=== PATIENT | female | born 1985 | race American Indian/Alaskan Native ===

== ENCOUNTER 2016-12-12 11:41 | Emergency (ER) | payer SELFPAY ==
[2016-12-12 12:15] VITALS: BP 155/111
[2016-12-12 13:47] LABS: Basophils % (Auto) 1.3 % (0.0-1.8); Eosinophils % (Auto) 10.1 % (0.0-4.3); Hemoglobin 12.7 gm/dl (10.1-14.3); Mean Corpuscular HGB Conc 33 % (30-34); Mean Corpuscular Hemoglobin 29 pg (28-32); Mean Corpuscular Volume 88 fl (79-97); Platelet Count 246 K/mm3 (140-440); Red Blood Count 4.41 M/mm3 (3.65-5.03); Red Cell Distribution Width 14.4 % (13.2-15.2); White Blood Count 9.3 K/mm3 (4.5-11.0)
--- NOTE | 2016-12-12 13:56 | Emergency Department Report ---
Chief Complaint: High BP Stated Complaint: HBP - HPI History of Present Illness: 31-year-old female presents with complaint of dizziness and generalized weakness states that she has had high blood pressure for 2 days now - ROS Review of Systems: In her usual state of health until 2 days ago - Exam Vital Signs: Vital Signs 12/12/16 12:13 Temperature 98.5 F Pulse Rate 72 Respiratory 18 Rate Blood Pressure 155/111 O2 Sat by Pulse 100 Oximetry Physical Exam: Heart S1-S2 lungs clear to auscultation MSE screening note: Focused history and physical exam performed. Due to findings the following was ordered: Screening Assessment/Plan/Differential Dx: Hypertension, generalized weakness 1- This initial assessment/diagnostic orders/clinical plan/ treatment(s) is/are subject to change based on pt's health status, clinical progression and re- assessment by fellow clinical providers in the ED. Further treatment and workup at subsequent clinical provers discretion. Patient/guardians urged not to elope from ED as their condition may be serious if not clinically assessed and managed. 2-EKG, chest x-ray, urinalysis, CK, CK-MB, troponin, BMP to rule out any organ damage associated with hypertension 3-BP 155/111, we will recheck and I will leave the decision to start antihypertensive medicine to physician in main ED ED Disposition for MSE Condition: Stable
[2016-12-12 14:03] LABS: Anion Gap 15 mmol/L; BUN/Creatinine Ratio 24.28; Blood Urea Nitrogen 17 mg/dL (7-17); Carbon Dioxide 25 mmol/L (22-30); Chloride 101.3 mmol/L (98-107); Glucose 105 mg/dL (65-100); Potassium 4.2 mmol/L (3.6-5.0); Sodium 137 mmol/L (137-145)
[2016-12-12 14:19] LABS: Creatine Kinase MB 1.3 ng/mL (0.0-4.0)
[2016-12-12 14:20] LABS: Creatine Kinase 90 units/L (30-135)
[2016-12-12 14:36] LABS: Bilirubin,Urine NEG (Negative); Blood,Urine MOD (Negative); Ketones,Urine NEG (Negative); Leukocyte Esterase,Urine NEG (Negative); Mucus,Urine FEW /HPF; Nitrite,Urine NEG (Negative); Protein,Urine <15 mg/dL mg/dL (Negative); Urobilinogen,Urine < 2.0 mg/dL (<2.0); WBC,Urine < 1.0 /HPF (0.0-6.0)
--- NOTE | 2016-12-12 14:36 | XRay Report ---
ROUTINE CHEST, TWO VIEWS: HISTORY: Hypertension. The trachea, heart, mediastinal contour, lung aragon and bony thorax are unremarkable. IMPRESSION: Unremarkable chest x-ray.
== END 2016-12-12 17:40 | disposition left against medical advice (07) ==
LOC: ED 11:41
DX: R42 Dizziness and giddiness (principal); R53.1 Weakness; I10 Essential (primary) hypertension; Z53.21 Procedure and treatment not carried out due to patient leaving prior to being seen by health care provider
CPT/HCPCS: 36415; 71020; 80048; 81001; 81025; 82550; 82553; 84484; 85025; 93005; 93010

== ENCOUNTER 2016-12-13 06:19 | Emergency (ER) | payer SELFPAY ==
[2016-12-13 11:49] VITALS: BP 157/110
--- NOTE | 2016-12-15 18:28 | ED Elopement Review ---
ED Pt Elopement review - Call Back decision Pt Call Back Decision: Pt to F/U with PMD
== END 2016-12-13 12:15 | disposition left against medical advice (07) ==
LOC: ED 06:19
DX: R51 Headache (principal); Z53.21 Procedure and treatment not carried out due to patient leaving prior to being seen by health care provider

== ENCOUNTER 2019-08-30 07:14 | Emergency (ER) | payer SELFPAY ==
[2019-08-30] MEDS ORDERED: NORMODYNE IV ONE ×2 (08:12→10:05)
[2019-08-30 08:46] LABS: Basophils # (Auto) 0.1 K/mm3 (0.0-0.1); Basophils % (Auto) 1.1 % (0.0-1.8); Eosinophils # (Auto) 0.3 K/mm3 (0.0-0.4); Eosinophils % (Auto) 3.8 % (0.0-4.3); Hematocrit 39.1 % (30.3-42.9); Lymphocytes # (Auto) 1.9 K/mm3 (1.2-5.4); Lymphocytes % (Auto) 22.7 % (13.4-35.0); Mean Corpuscular HGB Conc 33 % (30-34); Mean Corpuscular Volume 93 fl (79-97); Monocytes # (Auto) 0.6 K/mm3 (0.0-0.8); Monocytes % (Auto) 7.7 % (0.0-7.3); Platelet Count 235 K/mm3 (140-440); Red Blood Count 4.19 M/mm3 (3.65-5.03); Red Cell Distribution Width 13.5 % (13.2-15.2)
--- NOTE | 2019-08-30 09:12 | XRay Report ---
RIGHT WRIST 2 VIEW(S) INDICATION / CLINICAL INFORMATION: Wrist pain after trauma. COMPARISON: None available. FINDINGS: BONES / JOINT(S): No acute fracture or subluxation. No significant arthritis. SOFT TISSUES: No significant abnormality. ADDITIONAL FINDINGS: None. Signer Name: Era Goodman MD Signed: 08/30/2019 9:08 AM Workstation Name: [id number]
--- NOTE | 2019-08-30 09:13 | XRay Report ---
CHEST 2 VIEWS INDICATION / CLINICAL INFORMATION: hypertension. COMPARISON: 12/12/16 FINDINGS: SUPPORT DEVICES: None. HEART / MEDIASTINUM: No significant abnormality. LUNGS / PLEURA: No significant pulmonary or pleural abnormality. No pneumothorax. ADDITIONAL FINDINGS: No significant additional findings. IMPRESSION: 1. No acute findings. No change. Signer Name: Era Goodman MD Signed: 08/30/2019 9:08 AM Workstation Name: [id number]
[2019-08-30 09:20] LABS: Alanine Aminotransferase 9 units/L (7-56); Albumin 4.6 g/dL (3.9-5); BUN/Creatinine Ratio 19; Blood Urea Nitrogen 15 mg/dL (7-17); Calcium 8.5 mg/dL (8.4-10.2); Hemolysis Index 1
[2019-08-30 09:45] LABS: Bilirubin,Direct < 0.2 mg/dL (0-0.2)
[2019-08-30] MEDS ORDERED: NORVASC PO ONE (09:50)
[2019-08-30] MEDS ORDERED: NORCO 5/325 PO ONE (10:06)
--- NOTE | 2019-08-30 11:06 | Emergency Department Report ---
ED General Adult HPI - General Chief complaint: Extremity Injury, Upper Stated complaint: WRIST PAIN RT Time Seen by Provider: 08/30/19 08:00 Source: patient Mode of arrival: Ambulatory Limitations: No Limitations - History of Present Illness Initial comments: Is a 23-year-old female that strained her wrist at work. She was found to have incidental hypertension. She admits that she has not checked her blood pressure and years although she works as a certified nursing assistant. She does not goes to the doctor either. She does not complain of any difficulty in breathing change in urine output chest pain or any symptoms attributable to hypertension. She does not have a known history of hypertension. He only complains of wrist soreness from lifting a patient a few days ago at work. -: Gradual, days(s) Location: right, upper extremity Severity scale (0 -10): 5 Improves with: none Worsens with: movement Associated Symptoms: denies other symptoms Treatments Prior to Arrival: none - Related Data Previous Rx's Medication Instructions Recorded Last Taken Type Omeprazole [PriLOSEC] 40 mg PO QDAY #30 cap 07/17/15 Unknown Rx Labetalol [Labetalol 100mg TAB] 100 mg PO BID #60 tablet 08/30/19 Unknown Rx Losartan/Hydrochlorothiazide 1 each PO DAILY #30 tablet 08/30/19 Unknown Rx [Losartan-Hctz 50-12.5 mg Tab] traMADol [Ultram 50 MG tab] 50 mg PO Q6HR PRN #7 tablet 08/30/19 Unknown Rx Allergies Allergy/AdvReac Type Severity Reaction Status Date / Time latex AdvReac Rash Verified 07/16/15 10:58 ED Review of Systems ROS: Stated complaint: WRIST PAIN RT Other details as noted in HPI Constitutional: denies: chills, fever Eyes: denies: eye pain, eye discharge, vision change ENT: denies: ear pain, throat pain Respiratory: denies: cough, shortness of breath, wheezing Cardiovascular: denies: chest pain, palpitations Endocrine: no symptoms reported Gastrointestinal: denies: abdominal pain, nausea, diarrhea Genitourinary: denies: urgency, dysuria, discharge Musculoskeletal: as per HPI. denies: back pain, joint swelling, arthralgia Skin: denies: rash, lesions Neurological: denies: headache, weakness, paresthesias Psychiatric: denies: anxiety, depression Hematological/Lymphatic: denies: easy bleeding, easy bruising ED Past Medical Hx - Past Medical History Previous Medical History?: Yes Hx GERD: Yes Additional medical history: ECZEMA - Surgical History Past Surgical History?: No - Social History Smoking Status: Current Every Day Smoker Substance Use Type: Alcohol - Medications Home Medications: Home Medications Medication Instructions Recorded Confirmed Last Taken Type Omeprazole [PriLOSEC] 40 mg PO QDAY #30 cap 07/17/15 Unknown Rx Labetalol [Labetalol 100mg TAB] 100 mg PO BID #60 tablet 08/30/19 Unknown Rx Losartan/Hydrochlorothiazide 1 each PO DAILY #30 tablet 08/30/19 Unknown Rx [Losartan-Hctz 50-12.5 mg Tab] traMADol [Ultram 50 MG tab] 50 mg PO Q6HR PRN #7 tablet 08/30/19 Unknown Rx ED Physical Exam - General Limitations: No Limitations General appearance: alert, in no apparent distress - Head Head exam: Present: atraumatic, normocephalic - Eye Eye exam: Present: normal appearance. Absent: scleral icterus - ENT ENT exam: Present: mucous membranes moist - Neck Neck exam: Present: normal inspection - Respiratory Respiratory exam: Present: normal lung sounds bilaterally. Absent: respiratory distress - Cardiovascular Cardiovascular Exam: Present: regular rate, normal rhythm. Absent: systolic murmur, diastolic murmur, rubs, gallop - GI/Abdominal GI/Abdominal exam: Present: soft, normal bowel sounds. Absent: distended, tenderness, guarding, rebound - Extremities Exam Extremities exam: Present: normal inspection - Back Exam Back exam: Present: normal inspection - Neurological Exam Neurological exam: Present: alert, oriented X3, CN II-XII intact. Absent: motor sensory deficit - Psychiatric Psychiatric exam: Present: normal affect, normal mood - Skin Skin exam: Present: warm, dry, intact, normal color. Absent: rash ED Course Vital Signs 08/30/19 08/30/19 08/30/19 07:20 08:16 08:40 Temperature 98.7 F Pulse Rate 99 H 80 Respiratory 16 Rate Blood Pressure 190/125 173/112 175/113 O2 Sat by Pulse 99 100 Oximetry 08/30/19 08/30/19 08/30/19 09:30 10:12 10:47 Temperature Pulse Rate Respiratory Rate Blood Pressure 175/109 180/108 175/109 O2 Sat by Pulse 98 Oximetry - Reevaluation(s) Reevaluation #1: Patient remains asymptomatic except for wrist soreness. Blood pressure is improved to 160/100. This is appropriate for outpatient management. 08/30/19 11:04 ED Medical Decision Making - Lab Data Result diagrams: 08/30/19 08:23 08/30/19 08:23 Laboratory Results - last 24 hr 08/30/19 08/30/19 08:23 08:23 WBC 8.3 RBC 4.19 Hgb 13.0 Hct 39.1 MCV 93 MCH 31 MCHC 33 RDW 13.5 Plt Count 235 Lymph % (Auto) 22.7 [place] % (Auto) 7.7 H Eos % (Auto) 3.8 Baso % (Auto) 1.1 Lymph # 1.9 [place] # 0.6 Eos # 0.3 Baso # 0.1 Seg Neutrophils % 64.7 Seg Neutrophils # 5.3 Sodium 140 Potassium 4.2 Chloride 105.2 Carbon Dioxide 21 L Anion Gap 18 BUN 15 Creatinine 0.8 Estimated GFR > 60 BUN/Creatinine Ratio 19 Glucose 82 Calcium 8.5 Total Bilirubin 0.20 Direct Bilirubin < 0.2 Indirect Bilirubin 0.0 AST 16 ALT 9 Alkaline Phosphatase 58 Total Protein 7.0 Albumin 4.6 Albumin/Globulin Ratio 1.9 - EKG Data -: EKG Interpreted by Me EKG shows normal: sinus rhythm, axis, intervals, QRS complexes, ST-T waves Rate: normal - EKG Data Interpretation: nonspecific ST-T wave eliana, LVH (consider) - Radiology Data Radiology results: report reviewed (wrist x-ray no acute process) Critical care attestation.: If time is entered above; I have spent that time in minutes in the direct care of this critically ill patient, excluding procedure time. ED Disposition Clinical Impression: Uncontrolled hypertension Sprain of wrist, right Qualifiers: Encounter type: initial encounter Qualified Code(s): S63.501A - Unspecified sprain of right wrist, initial encounter Disposition: TO HOME OR SELFCARE Is pt being admited?: No Does the pt Need Aspirin: No Condition: Stable Instructions: Hypertension (ED) Additional Instructions: Follow-up with orthopedic doctor Bryce for your wrist. Follow-up at the [facility] or primary care for your blood pressure. Rx as directed. Prescriptions: Labetalol [Labetalol 100mg TAB] 100 mg PO BID #60 tablet Losartan/Hydrochlorothiazide [Losartan-Hctz 50-12.5 mg Tab] 1 each PO DAILY #30 tablet traMADol [Ultram 50 MG tab] 50 mg PO Q6HR PRN #7 tablet PRN Reason: Pain Referrals: PRIMARY CARE, [Primary Care Provider] - 3-5 Days Time of Disposition: 11:05
[2019-08-30 11:28] VITALS: BP 167/99
== END 2019-08-30 11:29 | disposition home or self-care (01) ==
LOC: ED 07:14
DX: S63.501A Unspecified sprain of right wrist, initial encounter (principal); I10 Essential (primary) hypertension; K21.9 Gastro-esophageal reflux disease without esophagitis; F17.200 Nicotine dependence, unspecified, uncomplicated; Z79.899 Other long term (current) drug therapy; Z91.040 Latex allergy status; X58.XXXA Exposure to other specified factors, initial encounter; Y93.89 Activity, other specified; Y92.89 Other specified places as the place of occurrence of the external cause; Y99.8 Other external cause status
CPT/HCPCS: 36415; 71046; 80048; 80076; 85025; 93005; 93010; 96374; 96376